=== PATIENT | female | born 1990 | race Caucasian/White ===

== ENCOUNTER 2024-02-01 05:45 | Emergency (ER) | payer OTHER ==
[2024-02-01] MEDS ORDERED: Morphine 4 MG/ML VIAL ONE (06:13)
[2024-02-01] MEDS ORDERED: Ondansetron PF 4 MG/2 ML Vial ONE (06:13)
[2024-02-01 06:33] LABS: BHCG - Serum Negative (NEGATIVE); Pregs Control Bar Appear? YES (CONTROL BAR)
[2024-02-01 06:34] LABS: Pregs Control Background? CLEAR/WHITE (CLR/WHITE)
[2024-02-01 06:37] LABS: #Eosinphils 0.1 10x3/uL (0.0-0.5); #Monocytes 0.6 10x3/uL (0.0-1.1); #Neutrophils 6.1 10x3/uL (1.5-8.4); %Basophils 0.2 % (0.0-2.0); %Eosinophils 0.7 % (0.0-6.0); %Lymphocytes 16.9 % (18.0-47.0); %Monocytes 7.4 % (0.0-10.0); %Neutrophils 74.4 % (40.0-75.0); Hematocrit 35.9 % (34.9-44.5); Hemoglobin 12.5 g/dL (12.0-15.5); Mean Corpuscular HGB CONC 34.8 g/dL (32.0-36.0); Mean Corpuscular Hemoglobin 29.1 pg (27.0-33.0); Mean Corpuscular Volume 83.7 fl (81.6-98.3); Mean Platelet Volume 10.1 fl (7.4-10.4); Platelet Count 263 10x3/uL (150-450); RBC Distribution Width 12.9 % (11.5-14.5); Red Blood Cell (RBC) Count 4.29 10x6/uL (3.90-5.03); White Blood Cell (WBC) Count 8.2 10x3/uL (3.5-10.5)
[2024-02-01 06:44] LABS: ALT (SGPT) 56 U/L (8-55); AST (SGOT) 36 U/L (5-34); Albumin 3.9 g/dL (3.5-5.0); Alkaline Phosphatase 49 U/L (40-110); Anion Gap 14 mmol/L (10-20); BUN (Urea Nitrogen) 13 mg/dL (7.0-18.7); Bilirubin, Total 0.7 mg/dL (0.2-1.2); Calc. Creatinine Clearance 0 mL/min (70-130); Calcium 8.9 mg/dL (7.8-10.44); Carbon Dioxide 20 mmol/L (22-29); Chloride 104 mmol/L (98-107); Estimated GFR 82; Globulin 2.6 g/dL (2.4-3.5); Glucose 304 mg/dL (70-105); Lipase 26 U/L (8-78); Potassium 4.2 mmol/L (3.5-5.1); Protein, Total 6.5 g/dL (6.0-8.3); Sodium 134 mmol/L (136-145)
[2024-02-01 06:55] LABS: Bilirubin Neg (Negative); Blood, Urine 50 (Negative); Clarity Clear (Clear); Glucose, Urine (Dipstick) 250 mg/dL (Negative); Ketone, Urine 5 mg/dL (Negative); Leukocyte Negative (Negative); Nitrite Negative (Negative); Protein, Urine (Dipstick) 30 mg/dl (Neg-Trace); Specific Gravity, Urine 1.025 (1.005-1.030); Urobilinogen Normal mg/dL (Less than 2)
[2024-02-01 07:09] LABS: CAUTI Indications for Culture Pelvic or flank pain; WBC/HPF 0-3 HPF (0-3)
[2024-02-01 07:10] LABS: Bacteria/HPF 1+ HPF (None Seen)
[2024-02-01 07:11] LABS: Urine Culture Reflex No No
[2024-02-01] MEDS ORDERED: Insulin Regular 300 UNITS/3 ML VIAL ONE (07:35)
[2024-02-01] MEDS ORDERED: Ketorolac Tromethamine 30 MG (1 mL) VIAL ONE (07:35)
[2024-02-01 07:38] LABS: Actual Bicarbonate (HCO3v) 22.4 mEq/L (22-28); Analyzer IN Cardio CS ER; Base Excess -1.8 mEq/L (-2 - +2); Calcium, Ionized (venous) 1.09 mmol/L (1.16-1.32); Chloride (VBG) 103 mmol/L (98-106); Critical Notified Whom: MORDAN; Hematocrit-VBG 36 % (36.0-47.0); Hemoglobin (Hb) 12.4 g/dL (11.7-15.5); Potassium (VBG) 4.22 mmol/L (3.70-5.30); Puncture Site Other Site; RapidComm Collect By CBN; Sodium 134 mmol/L (133-146); pH (venous) 7.409 (7.32-7.43)
[2024-02-01] MEDS ORDERED: Iopamidol 300 61% 100 ML VIAL FS ONE (12:39)
== END 2024-02-01 09:15 | disposition home or self-care (01) ==
LOC: CSHERS 05:45
DX: N20.0 Calculus of kidney (principal); K52.9 Noninfective gastroenteritis and colitis, unspecified; R11.2 Nausea with vomiting, unspecified; E11.9 Type 2 diabetes mellitus without complications; I10 Essential (primary) hypertension; Z79.899 Other long term (current) drug therapy; Z79.84 Long term (current) use of oral hypoglycemic drugs
CPT/HCPCS: 36416; 74177; 80053; 81001; 82805; 83690; 84703; 85025; 96361; 96374; 96375; J1815; J1885; J2270; J2405; Q9967

== ENCOUNTER 2024-02-08 20:02 | Emergency (ER) | payer OTHER ==
[2024-02-08] MEDS ORDERED: Acetaminophen 500 MG TAB ONE (20:45)
[2024-02-08] MEDS ORDERED: HYDROmorphone 0.5 MG/0.5 ML SYRINGE ONE (20:45)
[2024-02-08] MEDS ORDERED: Ketorolac Tromethamine 30 MG (1 mL) VIAL ONE (20:45)
[2024-02-08 21:16] LABS: #Basophils 0.1 10x3/uL (0.0-0.2); #Eosinphils 0.2 10x3/uL (0.0-0.5); #Monocytes 0.6 10x3/uL (0.0-1.1); #Neutrophils 5.2 10x3/uL (1.5-8.4); %Basophils 0.6 % (0.0-2.0); %Eosinophils 2.6 % (0.0-6.0); %Lymphocytes 28.5 % (18.0-47.0); %Monocytes 6.5 % (0.0-10.0); %Neutrophils 61.4 % (40.0-75.0); Hematocrit 36.3 % (34.9-44.5); Hemoglobin 12.8 g/dL (12.0-15.5); Mean Corpuscular HGB CONC 35.3 g/dL (32.0-36.0); Mean Corpuscular Hemoglobin 29.1 pg (27.0-33.0); Mean Corpuscular Volume 82.5 fl (81.6-98.3); Mean Platelet Volume 9.9 fl (7.4-10.4); Platelet Count 308 10x3/uL (150-450); RBC Distribution Width 12.6 % (11.5-14.5); White Blood Cell (WBC) Count 8.5 10x3/uL (3.5-10.5)
[2024-02-08 21:27] LABS: Bilirubin Neg (Negative); Blood, Urine 150 (Negative); Clarity Clear (Clear); Glucose, Urine (Dipstick) 250 mg/dL (Negative); Ketone, Urine 5 mg/dL (Negative); Leukocyte Negative (Negative); Nitrite Negative (Negative); Protein, Urine (Dipstick) 30 mg/dl (Neg-Trace); Specific Gravity, Urine 1.025 (1.005-1.030); Urobilinogen Normal mg/dL (Less than 2)
[2024-02-08 21:29] LABS: ALT (SGPT) 65 U/L (8-55); AST (SGOT) 31 U/L (5-34); Albumin 4.4 g/dL (3.5-5.0); Alkaline Phosphatase 56 U/L (40-110); Anion Gap 15 mmol/L (10-20); BUN (Urea Nitrogen) 12 mg/dL (7.0-18.7); Bilirubin, Total 0.4 mg/dL (0.2-1.2); Calc. Creatinine Clearance 0 mL/min (70-130); Calcium 9.6 mg/dL (7.8-10.44); Carbon Dioxide 22 mmol/L (22-29); Chloride 103 mmol/L (98-107); Estimated GFR 94; Globulin 2.6 g/dL (2.4-3.5); Glucose 263 mg/dL (70-105); Potassium 4.1 mmol/L (3.5-5.1); Sodium 136 mmol/L (136-145)
[2024-02-08 21:35] LABS: Troponin I Less than 0.010 ng/mL (< 0.028)
[2024-02-08 21:52] LABS: Bacteria/HPF None Seen HPF (None Seen); CAUTI Indications for Culture Pelvic or flank pain; Calcium Oxalate Crystals 1+ HPF (None Seen); RBC/HPF 0-3 HPF (0-3); Squamous Epithelial 0-3 HPF (0-3); Urine Culture Reflex No No; WBC/HPF None Seen HPF (0-3)
[2024-02-08 22:25] LABS: CRP (Inflammatory) 1.11 mg/dL (= or < 0.5)
== END 2024-02-08 22:03 | disposition home or self-care (01) ==
LOC: CSHERS 20:02
DX: R07.81 Pleurodynia (principal); R10.11 Right upper quadrant pain; E11.22 Type 2 diabetes mellitus with diabetic chronic kidney disease; I10 Essential (primary) hypertension
CPT/HCPCS: 71045; 76705; 80053; 81001; 83690; 84484; 85025; 86140; 93005; 96374; 96375; J1170; J1885

== ENCOUNTER 2024-05-06 09:55 | Emergency (ER) | payer OTHER, SELFPAY ==
[2024-05-06 10:36] LABS: #Basophils 0.04 10x3/uL (0.0-0.2); #Eosinphils 0.22 10x3/uL (0.0-0.5); #Monocytes 0.57 10x3/uL (0.0-1.1); #Neutrophils 5.84 10x3/uL (1.5-8.4); %Basophils 0.4 % (0.0-2.0); %Eosinophils 2.5 % (0.0-6.0); %Lymphocytes 24.9 % (18.0-47.0); %Monocytes 6.4 % (0.0-10.0); %Neutrophils 65.6 % (40.0-75.0); Hematocrit 39.7 % (34.9-44.5); Hemoglobin 14.5 g/dL (12.0-15.5); Mean Corpuscular HGB CONC 36.5 g/dL (32.0-36.0); Mean Corpuscular Hemoglobin 29.8 pg (27.0-33.0); Mean Corpuscular Volume 81.5 fL (81.6-98.3); Mean Platelet Volume 9.9 fL (7.4-10.4); Platelet Count 310 10x3/uL (150-450); RBC Distribution Width 12.6 % (11.5-14.5); Red Blood Cell (RBC) Count 4.87 10x6/uL (3.90-5.03); White Blood Cell (WBC) Count 8.9 10x3/uL (3.5-10.5)
[2024-05-06 10:45] LABS: BHCG - Serum Negative (NEGATIVE); Pregs Control Background? CLEAR/WHITE (CLR/WHITE); Pregs Control Bar Appear? YES (CONTROL BAR)
[2024-05-06 10:51] LABS: ALT (SGPT) 83 U/L (8-55); AST (SGOT) 48 U/L (5-34); Albumin 4.1 g/dL (3.5-5.0); Alkaline Phosphatase 60 U/L (40-110); Anion Gap 16 mmol/L (10-20); BUN (Urea Nitrogen) 10 mg/dL (7.0-18.7); Bilirubin, Total 0.5 mg/dL (0.2-1.2); Calc. Creatinine Clearance 0 mL/min (70-130); Calcium 10.2 mg/dL (7.8-10.44); Carbon Dioxide 21 mmol/L (22-29); Chloride 98 mmol/L (98-107); Estimated GFR 84; Globulin 3.6 g/dL (2.4-3.5); Glucose 361 mg/dL (70-105); Potassium 4.1 mmol/L (3.5-5.1); Protein, Total 7.7 g/dL (6.0-8.3); Sodium 131 mmol/L (136-145)
[2024-05-06 10:59] LABS: Bilirubin Neg (Negative); Blood, Urine 50 (Negative); Clarity Clear (Clear); Glucose, Urine (Dipstick) >=1000 mg/dL (Negative); Ketone, Urine Negative (Negative); Leukocyte Negative (Negative); Nitrite Negative (Negative); Protein, Urine (Dipstick) 30 mg/dl (Neg-Trace); Urobilinogen Normal mg/dL (Less than 2); pH, Urine 6.5 (5.0-9.0)
[2024-05-06 11:20] LABS: Bacteria/HPF Rare-Few HPF (None Seen); CAUTI Indications for Culture Dysuria,urgency,freq; WBC/HPF 0-3 HPF (0-3)
[2024-05-06 11:22] LABS: Urine Culture Reflex No No
== END 2024-05-06 11:40 | disposition home or self-care (01) ==
LOC: CSHERS 09:55
DX: E11.65 Type 2 diabetes mellitus with hyperglycemia (principal); I10 Essential (primary) hypertension
CPT/HCPCS: 36416; 80053; 81001; 82010; 84703; 85025; 96360

== ENCOUNTER 2024-09-30 10:29 | Emergency (ER) | payer SELFPAY ==
[2024-09-30] MEDS ORDERED: Acetaminophen 500 MG TAB ONE (11:05)
== END 2024-09-30 13:47 | disposition home or self-care (01) ==
LOC: CSHERS 10:29
DX: O46.90 Antepartum hemorrhage, unspecified, unspecified trimester (principal); O24.919 Unspecified diabetes mellitus in pregnancy, unspecified trimester; O16.9 Unspecified maternal hypertension, unspecified trimester; Z3A.00 Weeks of gestation of pregnancy not specified
CPT/HCPCS: 36415; 76856; 84702

== ENCOUNTER 2024-10-03 08:40 | Emergency (ER) | payer SELFPAY ==
[2024-10-03 09:04] LABS: #Basophils 0.03 10x3/uL (0.0-0.2); #Eosinophils 0.17 10x3/uL (0.0-0.5); #Monocytes 0.46 10x3/uL (0.0-1.1); #Neutrophils 4.22 10x3/uL (1.5-8.4); %Basophils 0.5 % (0.0-2.0); %Eosinophils 2.7 % (0.0-6.0); %Lymphocytes 23.4 % (18.0-47.0); %Monocytes 7.2 % (0.0-10.0); %Neutrophils 65.9 % (40.0-75.0); Hematocrit 38.5 % (34.9-44.5); Hemoglobin 13.1 g/dL (12.0-15.5); Mean Corpuscular Hemoglobin 28.7 pg (27.0-33.0); Mean Corpuscular Volume 84.4 fL (81.6-98.3); Mean Platelet Volume 9.1 fL (7.4-10.4); Platelet Count 246 10x3/uL (150-450); RBC Distribution Width 12.7 % (11.5-14.5); Red Blood Cell (RBC) Count 4.56 10x6/uL (3.90-5.03); White Blood Cell (WBC) Count 6.4 10x3/uL (3.5-10.5)
== END 2024-10-03 09:40 | disposition home or self-care (01) ==
LOC: CSHERS 08:40
DX: O03.9 Complete or unspecified spontaneous abortion without complication (principal); I10 Essential (primary) hypertension; E11.9 Type 2 diabetes mellitus without complications
CPT/HCPCS: 36415; 84702; 85025; 99284

== ENCOUNTER 2024-10-07 13:04 | Emergency (ER) | payer SELFPAY ==
[2024-10-07 15:09] LABS: #Basophils 0.04 10x3/uL (0.0-0.2); #Eosinophils 0.15 10x3/uL (0.0-0.5); #Monocytes 0.43 10x3/uL (0.0-1.1); #Neutrophils 4.17 10x3/uL (1.5-8.4); %Basophils 0.6 % (0.0-2.0); %Eosinophils 2.2 % (0.0-6.0); %Lymphocytes 30.4 % (18.0-47.0); %Monocytes 6.2 % (0.0-10.0); %Neutrophils 60.5 % (40.0-75.0); Hematocrit 37.9 % (34.9-44.5); Hemoglobin 13.1 g/dL (12.0-15.5); Mean Corpuscular HGB CONC 34.6 g/dL (32.0-36.0); Platelet Count 263 10x3/uL (150-450); RBC Distribution Width 12.7 % (11.5-14.5); Red Blood Cell (RBC) Count 4.51 10x6/uL (3.90-5.03); White Blood Cell (WBC) Count 6.9 10x3/uL (3.5-10.5)
[2024-10-07 15:24] LABS: ALT (SGPT) 112 U/L (8-55); AST (SGOT) 70 U/L (5-34); Alkaline Phosphatase 62 U/L (40-110); Anion Gap 14 mmol/L (10-20); BUN (Urea Nitrogen) 9 mg/dL (7.0-18.7); Bilirubin, Total 0.6 mg/dL (0.2-1.2); Calc. Creatinine Clearance 0 mL/min (70-130); Calcium 9.6 mg/dL (7.8-10.44); Carbon Dioxide 23 mmol/L (22-29); Chloride 101 mmol/L (98-107); Estimated GFR 93; Globulin 3.1 g/dL (2.4-3.5); Glucose 336 mg/dL (70-105); Potassium 4.2 mmol/L (3.5-5.1); Protein, Total 7.1 g/dL (6.0-8.3); Sodium 134 mmol/L (136-145)
[2024-10-07 17:10] LABS: Bilirubin Neg (Negative); Blood, Urine 150 (Negative); Clarity Clear (Clear); Glucose, Urine (Dipstick) >=1000 mg/dL (Negative); Ketone, Urine Negative (Negative); Leukocyte Negative (Negative); Nitrite Negative (Negative); Protein, Urine (Dipstick) 30 mg/dl (Neg-Trace); Specific Gravity, Urine 1.015 (1.005-1.030); Urobilinogen Normal mg/dL (Less than 2)
[2024-10-07 17:36] LABS: Bacteria/HPF Rare-Few HPF (None Seen); CAUTI Indications for Culture Pelvic or flank pain; RBC/HPF 0-3 HPF (0-3); Squamous Epithelial 0-3 HPF (0-3); Urine Culture Reflex No No; WBC/HPF 0-3 HPF (0-3)
== END 2024-10-07 18:06 | disposition home or self-care (01) ==
LOC: CSHERS 13:04
DX: N93.9 Abnormal uterine and vaginal bleeding, unspecified (principal); R10.2 Pelvic and perineal pain; E11.65 Type 2 diabetes mellitus with hyperglycemia; I10 Essential (primary) hypertension
CPT/HCPCS: 36415; 76856; 80053; 81001; 84702; 85025